=== PATIENT | female | born 1965 | race Caucasian/White ===

== ENCOUNTER 2017-02-14 15:48 | Emergency (ER) | payer SELFPAY | END 2017-02-14 16:41 | disposition home or self-care (01) | LOC: D.ER 15:48 | DX: S60.222A Contusion of left hand, initial encounter (principal); S60.212A Contusion of left wrist, initial encounter; X58.XXXA Exposure to other specified factors, initial encounter; Y93.89 Activity, other specified; Y92.029 Unspecified place in mobile home as the place of occurrence of the external cause; F17.200 Nicotine dependence, unspecified, uncomplicated ==

== ENCOUNTER 2018-03-24 12:06 | Inpatient (IN) | payer MEDICAID ==
[~2018-03-24] VITALS: Ht 170.2 cm; Wt 130.9 kg
--- NOTE | ~2018-03-24 | MORECARE ---
CASE MANAGEMENT DISCHARGE SUMMARY PATIENT: SANDRA MONTOYA UNIT: [id number] ADM DATE: 03/24/18 AGE: 52 : 61 SEX: F ROOM/BED: D.2103 AUTHOR: KEEGAN AGARWAL PHYSICIAN: REFERRING PHYSICIAN: CHRIS MCCLELLAN MD DATE OF SERVICE: 03/29/18 Discharge Plan Patient Name: SANDRA MONTOYA Facility: [facility]:[place] : 1965 Planned Disposition: Home Anticipated Discharge Date: 03/27/18 Discharge Date: 03/27/2018 Expected LOS: 3 Initial Reviewer: [id number] Initial Review Date: 03/29/2018 Generated: 03/29/18 12:09 pm Patient Name: SANDRA MONTOYA Page [id number] at 1110 All edits/amendments must be made on the electronic document DICTATION DATE: 03/29/181108 NURSING MANAGER: LOPEZ 03/29/18 110 RPT#: [id number] DC DATE:03/27/18 STATUS: DIS IN [facility] [address] [place] [address] END OF REPORT
[2018-03-24] MEDS ORDERED: ALBUTEROL2.5 MG/3 M INH (12:25)
[2018-03-24] MEDS ORDERED: TYLENOL W/CODEI1 TAB PO (12:26)
[2018-03-24 13:07] LABS: BASOPHILS 0.2 % (0-2); EOSINOPHILS 1.4 % (0-7); HEMOGLOBIN 12.1 g/dL (12-16); IMMATURE GRANULOCYTES 0.1 % (0-5); LYMPHOCYTES 18.5 % (15-50); MCH 34.2 pg (26.0-34.0); MCHC 34.6 g/dL (31.0-37.0); MCV 98.9 fL (80.0-100.0); MEAN PLATELET VOLUME 10.3 fL (7.4-10.4); MONOCYTES 18.6 % (2-11); NEUTROPHILS 61.2 % (40-80); PLATELET COUNT 86 10x3/uL (130-400); RBC 3.54 10x6/uL (4.00-5.40); RDW 18.7 % (11.5-14.5); WBC 8.1 10x3/uL (4.8-10.8)
[2018-03-24 13:38] LABS: ALBUMIN 2.5 g/dL (3.4-5.0); ALKALINE PHOSPHATASE 99 U/L (46-116); ALT (SGPT) 24 U/L (10-68); BILIRUBIN - TOTAL 2.93 mg/dL (0.2-1.3); CALC OSMOLALITY 277 mosm/kg (275-300); CALCIUM 8.2 mg/dL (8.5-10.1); CARBON DIOXIDE 24.9 mmol/L (21.0-32.0); CHLORIDE - SERUM 106 mmol/L (98-107); CREATININE - SERUM 0.7 mg/dL (0.6-1.3); GLUCOSE 91 mg/dL (74-106); POTASSIUM - SERUM 4.5 mmol/L (3.5-5.1); PROTEIN - SERUM 6.8 g/dL (6.4-8.2); SODIUM 139 mmol/L (136-145); UREA NITROGEN 13 mg/dL (7-18); eGFR NON AFRICAN AMERICAN > 90 mL/min (90-120)
[2018-03-24 13:45] LABS: PRO BNP 101 pg/mL (0-125); TROPONIN-I 0.051 ng/mL (0.000-0.060)
[2018-03-24 14:12] LABS: APPEARANCE HAZY (CLEAR); BILIRUBIN NEGATIVE (NEGATIVE); COLOR YELLOW (YELLOW); EPITHELIAL CELLS 0-5 /hpf (0-5); GLUCOSE NEGATIVE (NEGATIVE); KETONE NEGATIVE (NEGATIVE); NITRITE NEGATIVE (NEGATIVE); PROTEIN NEGATIVE (NEGATIVE); RED CELLS - URINE 0-5 /hpf (0-5); SPECIFIC GRAVITY 1.015 (1.005-1.020); WHITE CELLS - URINE 0-5 /hpf (0-5)
[2018-03-24 14:13] LABS: YEAST >1+ /hpf (NONE SEEN)
[2018-03-24 14:27] LABS: UDS - AMPHET NEGATIVE QUAL (NEGATIVE); UDS - BARB NEGATIVE QUAL (NEGATIVE); UDS - BENZO NEGATIVE QUAL (NEGATIVE); UDS - COCAINE NEGATIVE QUAL (NEGATIVE); UDS - OPIATE POSITIVE QUAL (NEGATIVE); UDS - PCP NEGATIVE QUAL (NEGATIVE); UDS - THC NEGATIVE QUAL (NEGATIVE)
[2018-03-24 18:55] LABS: AMYLASE - SERUM 16 U/L (25-115); LIPASE 86 U/L (73-393)
[2018-03-24 21:24] VITALS: BP 150/74
[2018-03-25] VITALS (7 sets, daily range): BP systolic 110–148; BP diastolic 48–92; Ht 170.2 cm; Wt 130.9 kg
[2018-03-25 06:19] LABS: BASOPHILS 0.2 % (0-2); EOSINOPHILS 2.5 % (0-7); HEMATOCRIT 32.7 % (36.0-48.0); HEMOGLOBIN 11.2 g/dL (12-16); IMMATURE GRANULOCYTES 0.3 % (0-5); LYMPHOCYTES 23.4 % (15-50); MCH 33.8 pg (26.0-34.0); MCHC 34.3 g/dL (31.0-37.0); MCV 98.8 fL (80.0-100.0); MEAN PLATELET VOLUME 10.8 fL (7.4-10.4); MONOCYTES 13.9 % (2-11); NEUTROPHILS 59.7 % (40-80); PLATELET COUNT 86 10x3/uL (130-400); RBC 3.31 10x6/uL (4.00-5.40); RDW 19.2 % (11.5-14.5); WBC 9.5 10x3/uL (4.8-10.8)
[2018-03-25 06:48] LABS: ALBUMIN 2.2 g/dL (3.4-5.0); ALKALINE PHOSPHATASE 87 U/L (46-116); CALC OSMOLALITY 280 mosm/kg (275-300); CALCIUM 7.7 mg/dL (8.5-10.1); CHLORIDE - SERUM 108 mmol/L (98-107); CREATININE - SERUM 0.6 mg/dL (0.6-1.3); GLUCOSE 88 mg/dL (74-106); PROTEIN - SERUM 6.1 g/dL (6.4-8.2); SODIUM 142 mmol/L (136-145); UREA NITROGEN 11 mg/dL (7-18); eGFR NON AFRICAN AMERICAN > 90 mL/min (90-120)
[2018-03-25 06:51] LABS: ALT (SGPT) 15 U/L (10-68); POTASSIUM - SERUM 3.8 mmol/L (3.5-5.1)
[2018-03-25 07:34] LABS: PLATELET ESTIMATE DECREASED
[2018-03-26 03:59] LABS: BASOPHILS 0.1 % (0-2); EOSINOPHILS 1.4 % (0-7); HEMATOCRIT 31.8 % (36.0-48.0); IMMATURE GRANULOCYTES 0.4 % (0-5); LYMPHOCYTES 13.4 % (15-50); MCH 33.8 pg (26.0-34.0); MCHC 34.6 g/dL (31.0-37.0); MCV 97.8 fL (80.0-100.0); MEAN PLATELET VOLUME 10.2 fL (7.4-10.4); MONOCYTES 13.9 % (2-11); NEUTROPHILS 70.8 % (40-80); PLATELET COUNT 94 10x3/uL (130-400); RBC 3.25 10x6/uL (4.00-5.40); RDW 18.9 % (11.5-14.5)
[2018-03-26 04:00] VITALS: BP 134/58
[2018-03-26 04:07] LABS: APTT 41.7 SECONDS (22.8-39.4); INR 1.67 (0.85-1.17)
[2018-03-26 04:33] LABS: % SATURATION 53 % (15-55); IRON 113 ug/dl (35-150); TOTAL IRON BIND CAPACITY 212 ug/dl (260-445); UNSAT IRON BIND CAPACITY 99 ug/dl (150-375)
[2018-03-26 04:37] LABS: BILIRUBIN - DIRECT 1.05 mg/dL (0.00-0.30); T4 THYROXIN - FREE 0.69 ng/dL (0.76-1.46); THYROID STIMULATING HORMONE 2.16 uIU/mL (0.36-3.74)
[2018-03-26 04:56] LABS: ALBUMIN 2.2 g/dL (3.4-5.0); ALKALINE PHOSPHATASE 90 U/L (46-116); BILIRUBIN - TOTAL 3.26 mg/dL (0.2-1.3); CALCIUM 7.7 mg/dL (8.5-10.1); CARBON DIOXIDE 21.4 mmol/L (21.0-32.0); CHLORIDE - SERUM 105 mmol/L (98-107); CREATININE - SERUM 0.7 mg/dL (0.6-1.3); GLUCOSE 105 mg/dL (74-106); POTASSIUM - SERUM 3.6 mmol/L (3.5-5.1); PROTEIN - SERUM 6.1 g/dL (6.4-8.2); SODIUM 140 mmol/L (136-145); eGFR NON AFRICAN AMERICAN > 90 mL/min (90-120)
[2018-03-26 04:57] LABS: ALT (SGPT) 26 U/L (10-68); CALC OSMOLALITY 276 mosm/kg (275-300); UREA NITROGEN 8 mg/dL (7-18)
[2018-03-26 07:29] LABS: HEPATITIS C ANTIBODY >11.0 S/CO RAT (0.0-0.9)
[2018-03-26 08:00] VITALS: BP 149/88
[2018-03-26 11:42] VITALS: BP 146/78
[2018-03-26 16:09] VITALS: BP 148/64
[2018-03-26 17:55] VITALS: BP 153/84
[2018-03-26 23:55] VITALS: BP 133/65
[2018-03-27 03:45] VITALS: BP 113/64
[2018-03-27 06:38] LABS: BASOPHILS 0.4 % (0-2); EOSINOPHILS 6.8 % (0-7); HEMATOCRIT 33.9 % (36.0-48.0); HEMOGLOBIN 11.5 g/dL (12-16); IMMATURE GRANULOCYTES 0.4 % (0-5); LYMPHOCYTES 24.3 % (15-50); MCH 34.3 pg (26.0-34.0); MCHC 33.9 g/dL (31.0-37.0); MEAN PLATELET VOLUME 11.2 fL (7.4-10.4); MONOCYTES 15.9 % (2-11); NEUTROPHILS 52.2 % (40-80); RBC 3.35 10x6/uL (4.00-5.40); RDW 19.1 % (11.5-14.5)
[2018-03-27 06:44] LABS: MCV 101.2 fL (80.0-100.0); PLATELET COUNT 75 10x3/uL (130-400); WBC 7.9 10x3/uL (4.8-10.8)
[2018-03-27 07:21] LABS: ALBUMIN 2.1 g/dL (3.4-5.0); ALKALINE PHOSPHATASE 98 U/L (46-116); ALT (SGPT) 26 U/L (10-68); BILIRUBIN - TOTAL 1.98 mg/dL (0.2-1.3); CALC OSMOLALITY 274 mosm/kg (275-300); CALCIUM 7.8 mg/dL (8.5-10.1); CARBON DIOXIDE 22.4 mmol/L (21.0-32.0); CHLORIDE - SERUM 106 mmol/L (98-107); CREATININE - SERUM 0.6 mg/dL (0.6-1.3); GLUCOSE 117 mg/dL (74-106); POTASSIUM - SERUM 3.7 mmol/L (3.5-5.1); PROTEIN - SERUM 6.1 g/dL (6.4-8.2); SODIUM 138 mmol/L (136-145); UREA NITROGEN 8 mg/dL (7-18); eGFR NON AFRICAN AMERICAN > 90 mL/min (90-120)
[2018-03-27 08:26] VITALS: BP 119/57
[2018-03-27 10:14] LABS: ALPHA FETOPROTEIN -(TUMOR MRK) 3.1 ng/mL (0.0-8.3)
[2018-03-27 11:11] VITALS: BP 147/87
[2018-03-27] MEDS ORDERED: XIFAXAN550 MG PO (12:31)
[2018-03-27] MEDS ORDERED: DIFLUCAN100 MG PO (12:31)
[2018-03-27] MEDS ORDERED: CHRONULAC30 ML PO (12:32)
[2018-03-29 11:13] LABS: SMOOTH MUSCLE ABS (ACTIN) 23 Units (0-19)
[2018-03-29 13:15] LABS: ANA REFLEX - DIRECT Negative (Negative)
== END 2018-03-27 13:41 | disposition home or self-care (01) | DRG 442 ==
LOC: D.ER 12:06 → D.EDHOLD 18:44 → D.M2 18:44 → D.ER 19:08 → D.M2 19:39
PROVIDERS: Family Medicine; Family Medicine Adult Medicine; Internal Medicine Gastroenterology
DX: K72.90 Hepatic failure, unspecified without coma (principal); J98.11 Atelectasis; E72.20 Disorder of urea cycle metabolism, unspecified; B37.49 Other urogenital candidiasis; R53.1 Weakness; J44.9 Chronic obstructive pulmonary disease, unspecified; E66.01 Morbid (severe) obesity due to excess calories; F17.210 Nicotine dependence, cigarettes, uncomplicated; M54.9 Dorsalgia, unspecified; G89.29 Other chronic pain

== ENCOUNTER → 2018-10-20 15:23 | Outpatient (CLI) | payer MEDICAID ==
[2018-03-25 13:38] VITALS: BMI 44.9
[~2018-10-20 15:23] MED LIST: ALBUTEROL2.5 MG/3 M INH; CHRONULAC30 ML PO; DIFLUCAN100 MG PO; TYLENOL W/CODEI1 TAB PO; XIFAXAN550 MG PO
[2018-10-20 15:50] LABS: BASOPHILS 0.4 % (0-2); EOSINOPHILS 3.7 % (0-7); HEMATOCRIT 25.3 % (36.0-48.0); HEMOGLOBIN 8.6 g/dL (12-16); IMMATURE GRANULOCYTES 0.6 % (0-5); LYMPHOCYTES 28.7 % (15-50); MCH 33.1 pg (26.0-34.0); MCV 97.3 fL (80.0-100.0); MEAN PLATELET VOLUME 11.3 fL (7.4-10.4); NEUTROPHILS 48.6 % (40-80); PLATELET COUNT 93 10x3/uL (130-400); RDW 16.9 % (11.5-14.5); WBC 9.3 10x3/uL (4.8-10.8)
[2018-10-20 15:59] LABS: INR 2.92 (0.85-1.17); PROTIME 29.7 SECONDS (11.6-15.0)
[2018-10-20 16:09] LABS: ALBUMIN 1.1 g/dL (3.4-5.0); ANION GAP 9.7 mmol/L (8-16); BILIRUBIN - TOTAL 2.22 mg/dL (0.2-1.3); CALCIUM 7.6 mg/dL (8.5-10.1); CARBON DIOXIDE 25.2 mmol/L (21.0-32.0); CREATININE - SERUM 0.9 mg/dL (0.6-1.3); POTASSIUM - SERUM 3.9 mmol/L (3.5-5.1)
[2018-10-20 16:11] LABS: PLATELET ESTIMATE DECREASED
== END | disposition home or self-care (01) ==
LOC: D.LABREF 15:23
PROVIDERS: ATTEND Family Medicine
DX: Z79.899 Other long term (current) drug therapy (principal)